=== PATIENT | female | born 1950 | race Caucasian/White ===

== ENCOUNTER 2019-08-26 13:18 | Outpatient (CLI) | payer MEDICARE, OTHER, SELFPAY ==
--- NOTE | 2019-08-26 13:36 | MM_ITS ---
WS: [id number] BILATERAL DIGITAL SCREENING MAMMOGRAPHY WITH CAD CLINICAL INFORMATION: SCREENING HISTORY: Screening mammogram. No current complaints. COMPARISON: TECHNIQUE: Bilateral CC and MLO views. FINDINGS: Scattered fibroglandular densities bilaterally. Lucent centered calcifications. No suspicious focal m ass, asymmetry, calcifications, or architectural distortion. No evidence of malignancy. MM/[place] [id number] IMPRESSION: BI-RADS: 2-Benign FOLLOW UP: 1 Year Follow-up Recommend return to annual screening mammography.
--- NOTE | 2019-08-26 14:27 | XR_ITS ---
WS: [id number] DEXA (DUAL ENERGY X-RAY ABSORPTIOMETRY) Bone mineral density was performed using a [employer] machine. HISTORY: POST MENOPAUSAL COMPARISON: None available. Lumbar spine BMD (L1-L4): 1.208 g/cm2 T score: 0.2 Z score: 0.8 Total hip BMD: Left: 0.951 g/cm2. T score: -0.4 Z score: 0.2 Right: 0.973 g/cm2. T score: -0.3 Z score: 0.4 10 year probability of a major osteoporotic fracture is 9%. XR/XR DEXA axial skeleton* [id number] IMPRESSION: NORMAL BONE MINERAL DENSITY based upon the WHO classification for females.
== END 2019-08-26 13:19 | disposition home or self-care (01) ==
LOC: RADSHAW 13:26
PROVIDERS: Family Provider Family Medicine; PCP Family Medicine; Visit Provider Nurse Practitioner Family
DX: Z12.31 Encounter for screening mammogram for malignant neoplasm of breast (principal); Z78.0 Asymptomatic menopausal state
CPT/HCPCS: 77067; 77080

== ENCOUNTER 2020-07-02 10:13 | Observation (INO) | payer MEDICARE, OTHER, SELFPAY ==
[2020-07-02] VITALS (23 sets, daily range): BP systolic 97–149; BP diastolic 5–113; PULSE 66–90; RESP 16–20; TEMP 36.2–37.9; O2SAT 90–98; BMI 34.7
--- NOTE | 2020-07-02 10:47 | CTR_ITS ---
PROCEDURE INFORMATION: Exam: CT Abdomen And Pelvis With Contrast Exam date and time: 07/02/2020 11:27 AM Age: 69 years old Clinical indication: Abdominal pain; Localized; Right lower quadrant (rlq); Additional info: Abd pain TECHNIQUE: Imaging protocol: Computed tomography of the abdomen and pelvis with intravenous contrast. Radiation optimization: All CT scans at this facility use at least one of these dose optimization techniques: automated exposure control; mA and/or kV adjustment per patient size (includes targeted exams where dose is matched to clinical indication); or iterative reconstruction. Contrast material: OMNI 300; Contrast volume: 95 ml; Contrast route: INTRAVENOUS (IV); COMPARISON: No relevant prior studies available. RADIATION DOSE METRICS: Total DLP (mGy-cm): 1502.52 FINDINGS: Liver: Normal. No mass. Gallbladder and bile ducts: Normal. No calcified stones. No ductal dilation. Pancreas: Normal. No ductal dilation. Spleen: The spleen demonstrates several small calcifications consistent with healed granulomatous disease. Adrenal glands: Normal. No mass. Kidneys and ureters: Left renal 19 mm benign simple cyst. No specific followup required/recommended. Mild right renal cortical scarring. Right mid renal 2.3 mm calyceal calculus. Stomach and bowel: Medial cecal wall thickening which is felt to be secondary. Sigmoid colonic diverticula are present without evidence of diverticulitis. Appendix: The appendix is mildly-moderately enlarged, measuring up to approximately 13.0 mm diameter, tapering distally, with moderately severe periappendiceal edema. An obstructing appendicolith is present measuring 8.4 mm. A periappendiceal fluid collection is not identified. Intraperitoneal space: No pneumoperitoneum or ascites. Vasculature: Calcified phleboliths are present in the lower pelvis bilaterally. Calcified phleboliths are present in the lower pelvis bilaterally. Moderate aortic atherosclerotic calcification without aneurysm. The iliac arteries show moderate bilateral atherosclerotic calcifications without evidence of aneurysm. Lymph nodes: No enlarged lymph nodes. Urinary bladder: The urinary bladder is decompressed and difficult to assess. Reproductive: Benign appearing left adnexal calcification. Bones/joints: L5-S1 degenerative disc disease. Right lower lumbar facet primary osteoarthritis. Grade 1 L4-5 degenerative type anterolisthesis. Moderate L5-S1 spondylosis. Soft tissues: Unremarkable. CT/CT abdomen pelvis w con* [id number] IMPRESSION: 1. Appendicitis. 2. Diverticulosis. 3. Mild right renal cortical scarring. 4. Right renal calyceal lithiasis. COMMENTS: Consistent with the [employer]'s Incidental Findings Committee white paper (J Am Amparo Radiol 2018): Any incidental renal lesion less than 1 cm or classified as too small to characterize, or any incidental cystic renal lesion characterized as simple-appearing, is likely benign. No follow-up imaging is recommended for these lesions per consensus recommendations based on imaging criteria. Radiation Dose CTDIVOL = (mGy): DLP = 1502.52 (mGy-cm)
--- NOTE | 2020-07-02 10:48 | PC.NURSE ---
Pt up to BR to attempt to provide urine sample.
--- NOTE | 2020-07-02 10:48 | W.ED.ABDPA2 ---
HPI - Abdominal Pain General: Chief Complaint: Abdominal Pain Stated Complaint: ABD PAIN Time Seen by Provider: 07/02/20 10:19 History of Present Illness: HPI narrative: 69-year-old female presents emergency room complaining of right lower quadrant abdominal pain that began yesterday. She noticed some urgency yesterday but has not been able to void much at all today she has not had any diarrhea her last normal bowel movement was yesterday. Still a little bit of sinus drainage and cough which she relates to allergies. Is not new it is been ongoing for several weeks now. She does not have any flank pain. Subjectively she had a fever overnight she did notice on the way in the while riding in the car any small bumps they had caused severe right lower quadrant abdominal pain. She has had quite a bit of bilious vomiting in the exam room prior to my arrival. MD elicited complaint: abdominal pain Pertinent past history: past UTI Onset (ago): day(s) Location: RLQ Severity: moderate Quality: cramping and stabbing Radiation: none Migration to: no migration Exacerbating factors: movement and other (Palpation) Relieving factors: rest Associated Symptoms: Reports anorexia, bloating, GI cramping, nausea and vomiting; Denies belching, change in bowel habits, change in stool character, chills, coffee ground emesis, constipation, diarrhea, dyspepsia, dysuria, excessive flatus, fever(s), heartburn, hematochezia, hematuria, hematemesis, fecal incontinence, loose stools, melena, poor appetite and syncope Review of Systems Const: Denies: fever(s) or chills ENMT: Denies: throat pain, ear or mastoid pain, nasal discharge or nasal congestion Card: Denies: syncope Resp: Denies: dyspnea, productive cough or non-productive cough GI: Reports: nausea, vomiting, bloating and GI cramping; Denies: hematemesis, coffee ground emesis, heartburn, diarrhea, constipation, belching, excessive flatus, fecal incontinence, change in bowel habits, change in stool character, hematochezia or melena : Denies: dysuria or hematuria Skin/Breast: Denies: rash or pruritus PFS ED PFSH: Medical History Hypertension Physical Exam Const: COMMON NORMALS: no acute distress GENERAL APPEARANCE: cooperative and comfortable ORIENTATION/CONSCIOUSNESS: Yes awake, Yes oriented to person, Yes oriented to place and Yes oriented to time HENMT: COMMON NORMALS: normocephalic, atraumatic and hearing grossly normal bilaterally HEAD & SCALP: normocephalic and atraumatic Eye: COMMON NORMALS: Equal, round and reactive pupils present, EOMs intact bilaterally, conjunctivae normal and no scleral icterus CONJUNCTIVA: Yes conjunctivae normal PUPIL: Yes Equal, round and reactive pupils present Neck/C-Spine: COMMON NORMALS: full ROM, no lymphadenopathy, supple and no JVD Lymph: LYMPHATIC: no lymphadenopathy noted and no lymphedema noted Resp: COMMON NORMALS: normal respiratory effort, No retractions, No use of accessory muscles and clear to auscultation bilaterally AUSCULTATION: clear to auscultation bilaterally Cardio: COMMON NORMALS: no JVD, regular rate, regular rhythm and No murmurs present (Cardio) RATE: regular rate RHYTHM: regular rhythm GI: COMMON NORMALS: No hepatosplenomegaly present AUSCULTATION: Yes Hypoactive bowel sounds present PALPATION: Yes Tenderness to palpation present (GI) Details: RLQ, Yes Guarding due to palpation present (GI) in the RLQ and Yes No hepatosplenomegaly present Extremity: COMMON NORMALS: normal to inspection, capillary refill normal, no clubbing, cyanosis or edema, no calf tenderness and no pedal edema Neuro: SENSORIUM/ORIENTATION: Yes oriented to person, Yes oriented to place and Yes oriented to time Skin: COMMON NORMALS: no rashes or lesions noted GENERAL SKIN EXAM: no rashes or lesions noted Course Vital Signs: Vital signs: Vital Signs Temperature 97.2 F L 07/02/20 10:21 Pulse Rate 87 07/02/20 11:00 Respiratory Rate 16 07/02/20 11:00 Blood Pressure 97/60 07/02/20 11:00 Pulse Oximetry 95 07/02/20 11:06 MDM - Abdominal Pain MDM Narrative: Medical decision making narrative: CT shows acute appendicitis consistent with finding on history and exam. Discussed Dr. Mendoza he will see the patient in the ER proceed directly the operating room discussed with patient and informed her of the diagnosis. Lab Data: Labs: Lab Results 07/02/20 07/02/20 Range/Units 10:35 10:35 WBC 15.6 H (4.0-10.0) 10^3/ uL RBC 4.73 (4.1-5.3) 10^6/u L Hgb 13.4 (11.5-15.3) g/dL Hct 41.2 (37.0-47.0) % MCV 87.1 (81-99) fL MCH 28.3 (28.0-34.0) pg MCHC 32.5 (30.0-36.0) g/dL RDW 14.3 (12.1-15.1) % Plt Count 308 (130-400) 10^3/c mm MPV 9.7 (7.4-10.4) fL Neut % (Auto) 83.5 % Lymph % (Auto) 10.7 % Daniels % (Auto) 5.1 % Eos % (Auto) 0.0 % Baso % (Auto) 0.3 % Neut # (Auto) 13.06 H (1.8-7.7) 10^3/u L Lymph # (Auto) 1.7 (0.8-4.8) 10^3/u L Daniels # (Auto) 0.8 (0.2-0.9) 10^3/u L Eos # (Auto) 0.0 (0.0-0.8) 10^3/u L Baso # (Auto) 0.0 (0.0-0.1) 10^3/u L Nucleated RBC % (a uto) 0 % Nucleated RBCs # 0.0 /100WBC Sodium 134 L (136-145) mmol/L Potassium 3.7 (3.5-5.1) mmol/L Chloride 91 L (98-107) mmol/L Carbon Dioxide 30 H (22-29) mmol/L Anion Gap 16.7 (5-19) BUN 10 (8-23) mg/dL Creatinine 0.6 (0.5-0.9) mg/dL GFR Calculation 98.8 (90-130) mL/min Glucose 187 H (65-115) mg/dL Calculated Osmolal ity 282 L (285-295) mOsm/k g Calcium 9.3 (8.5-10.5) mg/dL Total Bilirubin 0.7 (0.15-1.2) mg/dL AST 16 (0-32) U/L ALT 13 (0-33) U/L Alkaline Phosphata se 53 (35-105) IU/L Total Protein 8.0 (6.6-8.7) g/dL Albumin 4.1 (3.5-5.2) g/dL Globulin 3.9 (1.3-4.6) g/dL Lipase 30 (13-60) U/L Discharge Plan Discharge Patient Disposition: Admitted As Inpatient Clinical Impression: Acute appendicitis Condition: Stable Coding Level of Care Code 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
[2020-07-02 10:51] LABS: Basophils % 0.3 %; Hematocrit 41.2 % (37.0-47.0); Hemoglobin 13.4 g/dL (11.5-15.3); Lymphocytes # 1.7 10^3/uL (0.8-4.8); Lymphocytes % 10.7 %; Mean Corpuscular HGB Conc 32.5 g/dL (30.0-36.0); Mean Corpuscular Hemoglobin 28.3 pg (28.0-34.0); Mean Corpuscular Volume 87.1 fL (81-99); Mean Platelet Volume 9.7 fL (7.4-10.4); Monocytes # 0.8 10^3/uL (0.2-0.9); Monocytes % 5.1 %; Neutrophils # 13.06 10^3/uL (1.8-7.7); Neutrophils % 83.5 %; Nucleated Red Blood Cells % 0 %; Platelet Count 308 10^3/cmm (130-400); Red Blood Count 4.73 10^6/uL (4.1-5.3); Red Cell Distribution Width 14.3 % (12.1-15.1); White Blood Count 15.6 10^3/uL (4.0-10.0)
--- NOTE | 2020-07-02 10:53 | PC.NURSE ---
Pt attempted to get UA, was able to void but missed the hat. Physician notified.
[2020-07-02] MEDS: morphine 4 mg/mL SDV 1 mL IVP (10:56)
[2020-07-02] MEDS: ondansetron 2 mg/ML SDV 2 mL 4 MG IVP (10:57)
--- NOTE | 2020-07-02 11:06 | PC.NURSE ---
Pt saturations dropped to 84% on room air after medication administration. Pt placed on 2LNC, now 96%.
[2020-07-02 11:09] LABS: Alanine Aminotransferase 13 U/L (0-33); Albumin Level 4.1 g/dL (3.5-5.2); Alkaline Phosphatase 53 IU/L (35-105); Anion Gap 16.7 (5-19); Aspartate Amino Transferase 16 U/L (0-32); Blood Urea Nitrogen 10 mg/dL (8-23); Calcium 9.3 mg/dL (8.5-10.5); Carbon Dioxide 30 mmol/L (22-29); Chloride 91 mmol/L (98-107); Globulin 3.9 g/dL (1.3-4.6); Glomerular Filtration Rate 98.8 mL/min (90-130); Glucose 187 mg/dL (65-115); Lipase 30 U/L (13-60); Osmolality Calculated 282 mOsm/kg (285-295); Potassium 3.7 mmol/L (3.5-5.1); Sodium 134 mmol/L (136-145); Total Bilirubin 0.7 mg/dL (0.15-1.2)
--- NOTE | 2020-07-02 11:20 | PC.NURSE ---
Pt to CT
--- NOTE | 2020-07-02 11:53 | P.HP_ITS ---
Providers/Chief Complaint Primary Care Provider: Kamlesh Baker Jr, MD Chief Complaint: ABD PAIN History of Present Illness Chief Complaint: Abdominal pain History of present illness: Ms. Michelle Estrada is a pleasant 69 year old female presents to the emergency department with worsening right lower side abdominal pain that started yesterday associated with nausea vomiting fevers or chills. Patient initially thought that she had UTI as she does get them quite often. She denies history of COVID-19 positive or has been in contact with any sick patients. Comes to the emergency department because of her worsening symptoms escorted by her spouse and further work-up showed leukocytosis of 15,000+ and a CT scan that showed acute appendicitis. CT scan of the abdomen and pelvis was done and showed: FINDINGS: Liver: Normal. No mass. Gallbladder and bile ducts: Normal. No calcified stones. No ductal dilation. Pancreas: Normal. No ductal dilation. Spleen: The spleen demonstrates several small calcifications consistent with healed granulomatous disease. Adrenal glands: Normal. No mass. Kidneys and ureters: Left renal 19 mm benign simple cyst. No specific followup required/recommended. Mild right renal cortical scarring. Right mid renal 2.3 mm calyceal calculus. Stomach and bowel: Medial cecal wall thickening which is felt to be secondary. Sigmoid colonic diverticula are present without evidence of diverticulitis. Appendix: The appendix is mildly-moderately enlarged, measuring up to approximately 13.0 mm diameter, tapering distally, with moderately severe periappendiceal edema. An obstructing appendicolith is present measuring 8.4 mm. A periappendiceal fluid collection is not identified. Intraperitoneal space: No pneumoperitoneum or ascites. Vasculature: Calcified phleboliths are present in the lower pelvis bilaterally. Calcified phleboliths are present in the lower pelvis bilaterally. Moderate aortic atherosclerotic calcification without aneurysm. The iliac arteries show moderate bilateral atherosclerotic calcifications without evidence of aneurysm. Lymph nodes: No enlarged lymph nodes. Urinary bladder: The urinary bladder is decompressed and difficult to assess. Reproductive: Benign appearing left adnexal calcification. Bones/joints: L5-S1 degenerative disc disease. Right lower lumbar facet primary osteoarthritis. Grade 1 L4-5 degenerative type anterolisthesis. Moderate L5-S1 spondylosis. Soft tissues: Unremarkable. CT/CT abdomen pelvis w con* [id number] IMPRESSION: 1. Appendicitis. 2. Diverticulosis. 3. Mild right renal cortical scarring. 4. Right renal calyceal lithiasis. General surgery was consulted for further evaluation management, patient was seen and evaluated in room #13 in the emergency department. Review of Systems General: Reports: 10 or more systems reviewed and unremarkable except in HPI and below Medications/Allergies Home Medications Medication Instructions Recorded Confirmed Last Taken Type chlorthalidone 25 mg PO DAILY 07/02/20 07/02/20 07/01/20 History fluticasone propionate 1 spray INTRANASAL BID PRN 07/02/20 07/02/20 07/01/20 History loratadine 10 mg PO DAILY 07/02/20 07/02/20 07/01/20 History Allergies Allergy/AdvReac Type Severity Reaction Status Date / Time No Known Allergies Allergy Unverified 07/02/20 11:55 PFSH Acute PFSH: Medical History Hypertension Vitals/I&O/Wt Last Vital Signs Temp 97.2 F L 07/02/20 10:21 Pulse 87 07/02/20 11:00 Resp 16 07/02/20 11:00 BP 97/60 07/02/20 11:00 Pulse Ox 95 07/02/20 11:06 Weight last 48 hrs Weight 215 lb Physical Exam Narrative: EXAM NARRATIVE: Patient is conscious alert oriented X3 BMI 35 Head and neck examination PERRLA no masses no cervical lymphadenopathy no jaundice Cardiac examination audible S1-S2 no murmurs no gallops no arrhythmias Chest is clear bilateral,abscence of Rhonchi or wheezes,no surgical emphysema Abdomen right lower quadrant tenderess, maximal at McBurney's point with localized guarding and rigidity. Otherwise nondistended soft no organomegaly Obese Extremities no cyanosis no clubbing no edema Data : 07/02/20 10:35 07/02/20 10:35 A&P Assessment and plan (1) Acute appendicitis: After thorough history physical examination and reviewing the chart and images with my personal interpretion, I counseled the patient for laparoscopic appendectomy possible open. Indications, risks, benefits and alternatives were all discussed with the patient and did agree to proceed. Rationale was carefully and clearly discussed with the patient.Appropriate informed consent have been reviewed and signed Status: Acute Attestations Medical Necessity Statement*: Observation overnight for pain control Time Spent in Patient Care: (>than 50% of time spent in counselling and/or direct pt care on unit) . 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
--- NOTE | 2020-07-02 12:41 | ANES.PREANE2 ---
Pre-Anesthetic Assessment Pre-Anesthetic Assessment: Height/Weight: Height 1.68 m Weight 97.522 kg Temp Pulse Resp BP Pulse Ox 97.2 F L 87 16 97/60 95 07/02/20 10:21 07/02/20 11:00 07/02/20 11:00 07/02/20 11:00 07/02/20 11:06 Preop Diagnosis: Acute appendicitis Proposed Procedure: Operation Date: 07/02/20 11:55 Proposed Procedures p Laparoscopic Appendectomy(Not Applicable) - Marcos Mendoza MD Familial anesthetic complications: None Last intake: NPO > 8 hrs Social: Social History: No alcohol and No tobacco Exam: Pre-Anes Outpt Exam: alert, oriented x 3, clear to auscultation bilaterally and regular rate & rhythm Airway: Cervical ROM: WNL MP: 4 Dentition: Partials CV/HEM: CV/HEM: HTN Anesthetic Plan: ASA status: 2E Anesthesia: General Risk of > 500 ml blood loss (7ml/kg in children): No PFSH Anesthesia PFSH: Medical History Hypertension Data Anesthesia CBC & Chem 7: 07/02/20 10:35 07/02/20 10:35 Other Labs: Laboratory Results - last 48 hr 07/02/20 07/02/20 10:35 10:35 WBC 15.6 H RBC 4.73 Hgb 13.4 Hct 41.2 MCV 87.1 MCH 28.3 MCHC 32.5 RDW 14.3 Plt Count 308 MPV 9.7 Neut % (Auto) 83.5 Lymph % (Auto) 10.7 [place] % (Auto) 5.1 Eos % (Auto) 0.0 Baso % (Auto) 0.3 Neut # (Auto) 13.06 H Lymph # (Auto) 1.7 [place] # (Auto) 0.8 Eos # (Auto) 0.0 Baso # (Auto) 0.0 Nucleated RBC % (auto) 0 Nucleated RBCs # 0.0 Sodium 134 L Potassium 3.7 Chloride 91 L Carbon Dioxide 30 H Anion Gap 16.7 BUN 10 Creatinine 0.6 GFR Calculation 98.8 Glucose 187 H Calculated Osmolality 282 L Calcium 9.3 Total Bilirubin 0.7 AST 16 ALT 13 Alkaline Phosphatase 53 Total Protein 8.0 Albumin 4.1 Globulin 3.9 Lipase 30 Cardiac Studies: No Data to Display
[2020-07-02] MEDS: piperacillin-tazobactam 3.375 GM in sodium chloride 0.9% (plus) 50 ML IV ×2 (12:52→18:16)
[2020-07-02] MEDS: lidocaine 1% INJ 20 mL INJECTION (13:06)
--- NOTE | 2020-07-02 14:19 | P.OP_ITS ---
Operative Report Date of procedure: July 02, 2020 Pre-op Diagnosis: Acute appendicitis Post-op Diagnosis: Acute appendicitis with perforation towards the base of the appendix with fecolith Pelvic peritonitis Intra-abdominal omental adhesions encasing the site of perforation Terminal ileitis Procedure Done: Laparoscopic appendectomy and partial cecectomy and intra- abdominal drain placement Implants: 15 [place] round Sha drain Specimens removed/disposition: partial cecectomy and appendectomy Surgeon: Marcos Mendoza Food Preparer: Surgical dago Villareal Circulating nurse Andry Anesthesia: General (Saw Goss and Dr. King) Estimated blood loss (mL): 25 IV fluids (mL): 1,000 Condition: stable Disposition: observation Brief History: Full H&P per chart. After thorough history physical examination and reviewing the chart and images with my personal interpretion, I counseled the patient for laparoscopic appendectomy possible open. Indications, risks, benefits and alternatives were all discussed with the patient and did agree to proceed. Rationale was carefully and clearly discussed with the patient.Appropriate informed consent have been reviewed and signed Procedure: Patient after being identified in the holding area and asked to void urine, and informed consent per chart ,patient was then taken back to the OR placed in supine position got intubated by anesthesia left arm was tucked tucked ,Timeout was done verifying the patient's name/date of /planned procedure and destination after the procedure, all were in agreement., preoperative antibiotics administered per protocol. prep and drape of the abdomen was done under the usual sterile technique. Started by longitudinal skin incision supraumbilical using a Hinkle trocar technique safe entry to the abdominal cavity was achieved verified by using 10 mm zero degree laparoscopy, switched to a 30? scope under direct visualization a suprapubic 5 mm trocar was inserted followed by another 5 mm trocar inserted in the left lower quadrant, I was able to position the patient in an T Brantley and left side down, patient was noticed to have pelvic peritonitis and pus at the pelvis and right paracolic gutter. Right-sided omental adhesions encasing the inflammatory process, that I had to take down with LigaSure first before reaching to the appendix region. Patient was noticed to have terminal ileitis and encasing the prececal inflamed appendix.dissection of the prececal acutely inflamed appendix there was some adhesions towards the lateral pelvic wall that was taken down by sharp and blunt dissection Using LigaSure also I took down also the mesoappendix.And there was an evidence of perforation towards the base of the appendix with fecalith one is large about centimeter in size and another one smaller less than half centimeter in size. Further dissection was warranted to reach the healthier part of the cecum in the form of mobilization of the proximal part of the ascending colon. I had to switch the camera to 5 mm 30? scope got introduced through the left lower quadrant and through the Hinkle trocar under direct visualization a GI stapler 45 mm blue load x3 was applied at the healthy part of the cecum and at this point a laparoscopic partial cecectomy and appendectomy was achieved. Copious and thorough irrigation with warm saline using about 6 L, and suction was obtained, were mercury/pus fluid like in the pelvis due to reaction from the inflamed appendix. Multiple 5 mm clips were applied onto the mesoappendix as well as the appendectomy staple line and a right lateral pelvic wall for minimal oozing. Final look laparoscopy was done showing no other abnormalities or injuries. The fascial closure device was used to close the supraumbilical fascial defect using #1 PDS under direct visualization. Following that I elected to place a 15 [place] round Sha drain through the lower midline 5 mm trocar site and placed it under direct visualization towards the right paracolic gutter and pelvic region, and the drain was secured to the skin using 2-0 nylon. All trocars were taken out under direct visualization, thorough irrigation was done to all incision sites and skin preeti were used for skin closure.Infiltr ation of local lidocaine 2% was done to all incision sites.Dry dressing was applied. Count was completed at the end of the procedure for [place],sponges and instruments Patient tolerated the procedure well and was transferred to the recovery area after extubation. I was present for the whole entire procedure
--- NOTE | 2020-07-02 15:15 | PM.PACU ---
PACU note Post-Anesthesia Exam: awake and vital signs stable Disposition: back to floor
--- NOTE | 2020-07-02 15:16 | SUR.PHASEI ---
PT AWAKE ALERT ON 3LNC PT ERICH DRAIN EMPTIED OF 200ML CLEAR LT YELLOW SECRETION, ABD SOFT 3 SITES WITH EXOFIN AND BANDAIDS D/I PT TO FLOOR PER CART.
--- NOTE | 2020-07-02 15:40 | SUR.PHASEI ---
PT TO FLOOR,PT ALERT MOVES SELF TO BED DRAIN AGAIN FULL DRESSING NOW SAT
[2020-07-02] MEDS: famotidine 20 mg/2 mL INJ IVP (15:55)
[2020-07-02] MEDS: sodium chloride 0.9% 1,000 ML 100 ML IV (15:56)
--- NOTE | 2020-07-02 16:59 | PC.NURSE ---
Phone, Chargers, Tablet, Partial denture, clothes.
[2020-07-02 18:52] LABS: Add Urine Microscopic? YES; Bilirubin Urine Neg (Negative); Blood Urine 2+ (Negative); Glucose Urine UA Norm (Normal); Ketones Urine Negative (Negative); Leukocyte Esterase Urine Negative (Negative); Nitrate Urine Negative (Negative); Protein Urine Trace (Negative); Specific Gravity, Urine 1.005 (1.005-1.030); Urine Appearance SL Hazy (CLEAR); Urine Color Yellow (Yellow); Urobilinogen Urine Norm (Negative); pH Urine 6.5 (5-7)
[2020-07-02 19:04] LABS: RBC Urine 0-4 /hpf (0-2); Squamous Epithelial Cell Urine 25-40 /hpf (0-5); WBC Urine 0-4 /hpf (0-5)
[2020-07-02 19:05] LABS: Add Urine Culture? No; Bacteria Urine TRACE /hpf
[2020-07-02] MEDS: HYDROcodone-acetaminophen 5-325 mg Tablet 1 TAB PO (21:38)
[2020-07-03] VITALS (8 sets, daily range): BP systolic 101–131; BP diastolic 59–80; PULSE 58–75; RESP 16–20; TEMP 36.6–37.1; O2SAT 92–96
[2020-07-03] MEDS: sodium chloride 0.9% 1,000 ML 100 ML IV ×3 (02:50→22:35)
[2020-07-03] MEDS: famotidine 20 mg/2 mL INJ IVP ×2 (02:50→14:45)
[2020-07-03] MEDS: piperacillin-tazobactam 3.375 GM in sodium chloride 0.9% (plus) 50 ML IV ×3 (03:13→20:19)
[2020-07-03 05:12] LABS: Basophils # 0.1 10^3/uL (0.0-0.1); Basophils % 0.3 %; Eosinophils # 0.2 10^3/uL (0.0-0.8); Eosinophils % 1.3 %; Hematocrit 33.3 % (37.0-47.0); Hemoglobin 10.8 g/dL (11.5-15.3); Lymphocytes # 1.4 10^3/uL (0.8-4.8); Lymphocytes % 7.5 %; Mean Corpuscular HGB Conc 32.4 g/dL (30.0-36.0); Mean Corpuscular Hemoglobin 28.6 pg (28.0-34.0); Mean Corpuscular Volume 88.3 fL (81-99); Monocytes # 0.7 10^3/uL (0.2-0.9); Monocytes % 3.8 %; Neutrophils # 16.29 10^3/uL (1.8-7.7); Neutrophils % 86.5 %; Nucleated Red Blood Cells % 0 %; Platelet Count 214 10^3/cmm (130-400); Red Blood Count 3.77 10^6/uL (4.1-5.3); Red Cell Distribution Width 14.5 % (12.1-15.1); White Blood Count 18.8 10^3/uL (4.0-10.0)
[2020-07-03 05:30] LABS: Anion Gap 9.1 (5-19); Blood Urea Nitrogen 10 mg/dL (8-23); Calcium 8.1 mg/dL (8.5-10.5); Carbon Dioxide 29 mmol/L (22-29); Chloride 97 mmol/L (98-107); Glucose 165 mg/dL (65-115); Osmolality Calculated 277 mOsm/kg (285-295); Potassium 3.1 mmol/L (3.5-5.1); Sodium 132 mmol/L (136-145)
[2020-07-03] MEDS: heparin 5,000 unit/mL INJ 1 mL 5000 UNIT SUBCUT ×3 (06:45→22:35)
--- NOTE | 2020-07-03 07:05 | P.PN_ITS ---
Subjective Subjective: Interval history: Patient overall feels better, no acute events overnight and good urine output. Did not pass gas yet. TrEnding up leukocytosis and hypokalemia. Vitals/I&O/Wt Last Vital Signs Temp 98.3 F 07/03/20 05:07 Pulse 58 L 07/03/20 05:07 Resp 18 07/03/20 05:07 BP 106/69 07/03/20 05:07 Pulse Ox 95 07/03/20 05:07 07/02/20 07/03/20 07/03/20 22:59 06:59 14:59 Intake Total 290 / 440 1720 / 2160 Output Total 300 / 320 1000 / 1320 Balance -10 / 120 720 / 840 Weight last 48 hrs Weight 215 lb Physical Exam Narrative: EXAM NARRATIVE: Patient is conscious alert oriented X3 BMI 35 Head and neck examination PERRLA no masses no cervical lymphadenopathy no jaundice Cardiac examination audible S1-S2 no murmurs no gallops no arrhythmias Chest is clear bilateral,abscence of Rhonchi or wheezes,no surgical emphysema Abdomen nontender nondistended soft no organomegaly guarding or rigidity/no signs of peritonitis Lower abdominal drain in place with serosanguineous output Extremities no cyanosis no clubbing no edema Data : 07/03/20 04:51 07/03/20 04:51 A&P Assessment and plan (1) Acute appendicitis: Replace potassium by p.o. 40 mEq and repeat labs in the morning in the form of CBC and BMP encourage ambulation Incentive spirometer every hour We will advance slowly to full liquid Drain care and teaching Assurance and education All questions have been answered and all concerns have been addressed to patient's satisfaction. Status: Resolved Attestations Medical Necessity Statement*: Observation status and plan to keep the patient 1 more night for IV antibiotic and trending down and leukocytosis Time Spent in Patient Care: (>than 50% of time spent in counselling and/or direct pt care on unit) . Coding Level of Care Code Acute Dishwasher Busser for Minerva Robledo Diagnoses Acute appendicitis K35.80
[2020-07-03] MEDS: potassium chloride oral liq 20 mEq/15 mL UDC 40 MEQ PO (08:14)
--- NOTE | 2020-07-03 12:47 | ANE.PACU2 ---
Inpatient post-anesthesia follow up: Airway intact: Yes Vital signs: Temperature 98.5 F Pulse Rate [Monito r] 90 Pulse Rate 66 Respiratory Rate 18 Blood Pressure [Ri ght Arm] 142/81 Blood Pressure 101/63 Pulse Oximetry 93 Oxygen Delivery Me thod [ Nasal Cannula Current Rate & Del willy] Oxygen Delivery Me thod Room Air Oxygen Flow Rate [ Current Rate 2.5 & Delivery] Oxygen Flow Rate 1 Fraction of Inspir ed Oxygen Hydration adequate: Yes Nausea and vomiting: No Pain level: 2 Mental status: Baseline
[2020-07-04] VITALS: BP 132/64; PULSE 80; RESP 19; TEMP 36.7; O2SAT 94
[2020-07-04] MEDS: famotidine 20 mg/2 mL INJ IVP (02:59)
[2020-07-04 04:00] VITALS: BP 128/77; PULSE 86; RESP 17; TEMP 37.7; O2SAT 93
[2020-07-04] MEDS: piperacillin-tazobactam 3.375 GM in sodium chloride 0.9% (plus) 50 ML IV (04:11)
[2020-07-04 04:56] LABS: Basophils % 0.2 %; Eosinophils % 0.1 %; Hematocrit 33.1 % (37.0-47.0); Hemoglobin 10.5 g/dL (11.5-15.3); Lymphocytes # 1.9 10^3/uL (0.8-4.8); Lymphocytes % 13.8 %; Mean Corpuscular HGB Conc 31.7 g/dL (30.0-36.0); Mean Corpuscular Hemoglobin 28.6 pg (28.0-34.0); Mean Corpuscular Volume 90.2 fL (81-99); Mean Platelet Volume 10.4 fL (7.4-10.4); Monocytes # 0.6 10^3/uL (0.2-0.9); Monocytes % 4.5 %; Neutrophils # 10.87 10^3/uL (1.8-7.7); Nucleated Red Blood Cells % 0 %; Platelet Count 243 10^3/cmm (130-400); Red Blood Count 3.67 10^6/uL (4.1-5.3); Red Cell Distribution Width 14.6 % (12.1-15.1); White Blood Count 13.4 10^3/uL (4.0-10.0)
[2020-07-04 05:17] LABS: Anion Gap 8.3 (5-19); Blood Urea Nitrogen 8 mg/dL (8-23); Calcium 7.9 mg/dL (8.5-10.5); Carbon Dioxide 30 mmol/L (22-29); Chloride 99 mmol/L (98-107); Glucose 109 mg/dL (65-115); Osmolality Calculated 277 mOsm/kg (285-295); Potassium 3.3 mmol/L (3.5-5.1); Sodium 134 mmol/L (136-145)
[2020-07-04] MEDS: heparin 5,000 unit/mL INJ 1 mL 5000 UNIT SUBCUT (06:58)
[2020-07-04] MEDS: potassium chloride ER 20 mEq Tablet 40 MEQ PO (06:58)
[2020-07-04] MEDS: glycerin adult supp 2 EACH PR (06:58)
--- NOTE | 2020-07-04 07:43 | P.SS_ITS ---
Short Stay Summary Providers Date of Admit/Discharge: 07/04/20 Attending Provider: Marcos Mendoza MD Primary Care Provider: Kamlesh Baker Jr, MD Chief Complaint: ABD PAIN HPI History of Present Illness Michelle Estrada is a 69 year old female presented with worsening abdominal pain to the emergency department and was found to have acute appendicitis. General surgery was consulted for further surgical care and management. Review of Systems General: Reports: 10 or more systems reviewed and unremarkable except in HPI and below Home Meds/Allergies Home Medications and Allergies Home Medications Medication Instructions Recorded Confirmed Type chlorthalidone 25 mg PO DAILY 07/02/20 07/02/20 History fluticasone propionate 1 spray INTRANASAL BID PRN 07/02/20 07/02/20 History loratadine 10 mg PO DAILY 07/02/20 07/02/20 History Allergies Allergy/AdvReac Type Severity Reaction Status Date / Time No Known Allergies Allergy Unverified 07/04/20 07:45 PFSH Acute PFSH: Medical History Acute appendicitis Hypertension Vitals/I&O/Wt Last Vital Signs Temp 99.8 F H 07/04/20 04:00 Pulse 86 07/04/20 04:00 Resp 17 07/04/20 04:00 BP 128/77 07/04/20 04:00 Pulse Ox 93 07/04/20 04:00 07/03/20 07/04/20 07/04/20 22:59 06:59 14:59 Intake Total 1050 / 2341.667 290 / 2631.667 Output Total 640 / 1490 2100 / 3590 Balance 410 / 851.667 -1810 / -958.333 Weight last 48 hrs Weight 215 lb Physical Exam Narrative: EXAM NARRATIVE: Patient is conscious alert oriented X3 BMI 35 Head and neck examination PERRLA no masses no cervical lymphadenopathy no jaundice Cardiac examination audible S1-S2 no murmurs no gallops no arrhythmias Chest is clear bilateral,abscence of Rhonchi or wheezes,no surgical emphysema Abdomen nontender except mildly at the incision sites nondistended soft no organomegaly guarding or rigidity/no signs of peritonitis, incisions are clean dry and intact and skin preeti in place after taking the Band-Aids down. Lower abdominal drain in place with serosanguineous output total of 50 mL over the past shift Hospital Course Discharge Summary This is a 69 years old female patient presented to the ER with worsening abdominal pain was found to have acute appendicitis on the CT scan. After thorough history physical examination and reviewing the chart and images with my personal interpretation patient was taken to the OR for laparoscopic appendectomy. Overall postoperatively patient did well and had uneventful hospital stay.Except for hypokalemia that was corrected by p.o. potassium chloride. Otherwise patient continued to have stable vital signs and good urine output and has been passing gas. Plan to discharge home today and follow-up at surgery office in 10 days with emphasis on drain teaching and education per nursing staff. Patient was educated to avoid constipation by using Metamucil or Benefiber [id number] and I will to supply the patient with p.o. potassium 20 mEq daily for 5 days and encouraged to follow-up with Dr. Gomez her family doctor. SSS Data Data Completed and Pending: Completed Studies During Hospitalization Category Date Time Status CT abdomen pelvis w con* [id number] Stat Cat Scan 07/02/20 10:47 Completed Pending at discharge Category Date Time Status ES surgery / GI i mages Routine Exams 07/02/20 12:10 Taken Basic Metabolic P sumaya AM LABS Lab 07/05/20 04:00 Ordered Complete Blood Co unt w/Auto AM LABS Lab 07/05/20 04:00 Ordered Pathology: Surgic al [PTH] Routine Pth 07/02/20 14:54 Ordered Diagnoses at Discharge Discharge Diagnosis (1) Acute appendicitis: Status: Resolved Permanent problem details: We will plan to give the patient p.o. 40 mEq of KCl x1 Hep-Lock IV fluids Advance diet as tolerated Plan to DC home today Assurance and education All questions have been answered and all concerns have been addressed to patient's satisfaction. (2) Hypokalemia: Status: Acute Discharge Plan Discharge Patient Disposition: Home Condition: Stable Prescriptions: [place] 5-325 mg tablet 1 tab PO Q6H PRN (Reason: pain) Qty: 28 RF: 0 potassium chloride 20 mEq packet 20 meq PO DAILY 5 Days Qty: 5 RF: 0 Continued chlorthalidone 25 mg tablet 25 mg PO DAILY RF: 0 fluticasone propionate 50 mcg/actuation spray,suspension 1 spray INTRANASAL BID PRN (Reason: Nasal Congestion) RF: 0 loratadine 10 mg Tablet 10 mg PO DAILY RF: 0 Discharge Orders: Discharge Order (Routine); Ordered 07/04/20 Ordered By: Marcos Mendoza Referrals: Marcos Mendoza MD [Physician] - (Return to surgery office in 10 days) Discharge Diet: Advance as tolerated Discharge Activity: Limit activity as instructed Activity Restrictions/Additional Instructions: 1. Patient can shower after 48 hours from surgery 2. Drain care and teach 3. Up and walking as tolerated 4. Do lift more than 5 pounds first 2 weeks after surgery and not more than 25 pounds 6 to 8 weeks after surgery. 5. Do not operate heavy machinery or drive while using pain medications. 6.Contact the office or return to the ER for worsening nausea vomiting fevers or chills, or noticing any redness around incision sites or discharge. Attestations Medical Necessity Statement*: Observation for medical and surgical care Time Spent in Patient Care*: greater than 30 min Specific Discharge Activities: Specific discharge activities: educating patient Status at Discharge: Cognitive status at discharge: cognitively intact , Behavioral status at discharge: cooperative , Functional status at discharge: independent ambulation Overall status at discharge: patient is progressing back to baseline Quality Metrics Clinical Quality Measures: During this hospital stay, did patient experience: None Coding Level of Care Code Acute Gemologist for Minerva Robledo Diagnoses Acute appendicitis K35.80 Hypokalemia E87.6
[2020-07-04 09:58] VITALS: BP 128/77; PULSE 86; RESP 17; TEMP 37.7; O2SAT 93
== END 2020-07-04 09:58 | disposition home or self-care (01) ==
LOC: ER 10:20 → OPS 12:07 → MEDSURG 13:27
PROVIDERS: Admitting Provider Surgery; Emergency Provider Family Medicine; PCP Family Medicine; Visit Provider Surgery
PROC: 0DTJ4ZZ Resection of Appendix, Percutaneous Endoscopic Approach (ICD-10-PCS; CPT 44970; principal; 2020-07-02 11:55)
DX: K35.80 Unspecified acute appendicitis (principal); E87.6 Hypokalemia; I10 Essential (primary) hypertension
CPT/HCPCS: 44970; 12345; 36415; 74177; 80048; 80053; 81001; 83690; 85025; 88304; 96361; 96365; 96366; 96372; 96375; 99282; 99285; G0378; J0131; J1100; J1644; J2270; J2405; J2543; J2704; J2710; J3010; J3490; J7030

== ENCOUNTER → 2020-10-02 13:43 | Outpatient (BNVA) | payer MEDICARE, OTHER, SELFPAY | PROVIDERS: PCP Family Medicine; Visit Provider Obstetrics & Gynecology | DX: R32 Unspecified urinary incontinence (principal); N32.81 Overactive bladder | CPT/HCPCS: 81000 ==

== ENCOUNTER → 2020-10-12 09:44 | Outpatient (BNVA) | payer MEDICARE, OTHER, SELFPAY | PROVIDERS: PCP Family Medicine; Visit Provider Internal Medicine | DX: Z12.11 Encounter for screening for malignant neoplasm of colon (principal) | CPT/HCPCS: 87635 ==

== ENCOUNTER 2020-10-16 07:38 | Day surgery (SDC) | payer MEDICARE, OTHER, SELFPAY ==
[2020-10-16 07:52] VITALS: BP 144/81; PULSE 78; RESP 18; TEMP 36.6; O2SAT 97
--- NOTE | 2020-10-16 08:03 | ANES.PREANE2 ---
Pre-Anesthetic Assessment Pre-Anesthetic Assessment: Height/Weight: Height 1.68 m Weight 99.79 kg Temp Pulse Resp BP Pulse Ox 97.8 F 78 18 144/81 97 10/16/20 07:52 10/16/20 07:52 10/16/20 07:52 10/16/20 07:52 10/16/20 07:52 Preop Diagnosis: s Proposed Procedure: Operation Date: 10/16/20 09:00 Proposed Procedures p Colonoscopy 23566 z12.11(Not Applicable) - Yonatan Onofre MD Was Beta Sea taken within 24 hours: N/A Last intake: Intake Last Liquid Date 10/15/20 Last Liquid Time 23:00 Last Solid Date 10/14/20 Last Solid Time 18:00 Social: Social History: No alcohol and No tobacco Exam: Pre-Anes Outpt Exam: alert, oriented x 3, clear to auscultation bilaterally and regular rate & rhythm Airway: Submandibular: WNL Cervical ROM: WNL MP: 2 Dentition: Full CV/HEM: CV/HEM: HTN Metabolic: Metabolic: Morbid obesity Anesthetic Plan: ASA status: 3 Anesthesia: MAC Risk of > 500 ml blood loss (7ml/kg in children): No PFSH Anesthesia PFSH: Medical History (Updated 10/02/20 @ 15:38 by Oh Montoya MD) Acute appendicitis We will plan to give the patient p.o. 40 mEq of KCl x1 Hep-Lock IV fluids Advance diet as tolerated Plan to DC home today Assurance and education All questions have been answered and all concerns have been addressed to patient's satisfaction. Hypertension Family History (Updated 10/02/20 @ 13:34 by Rae Treadwell RN) Mother Diabetes Sister Diabetes Hypertension Brother Diabetes x2 Hypertension x2 Heart disease Grandmother Stroke paternal Family/Other Breast cancer, Onset Age: 60 paternal first cousin Denies family history of Colon cancer Ovarian cancer Clotting disorder Hyperlipidemia Anesthesia complication Bleeding disorder Uterine cancer Thyroid condition Social History (Updated 10/02/20 @ 13:34 by Rae Treadwell RN) Smoking and tobacco status: never smoked Alcohol intake: current Alcohol intake frequency: holidays/special occasions only Data Anesthesia Cardiac Studies: No Data to Display
[2020-10-16] MEDS: sodium chloride 0.9% 1,000 ML 30 ML IV (08:11)
--- NOTE | 2020-10-16 09:15 | W.PM.OPSUD ---
Surgery/Procedure H&P Update DATE OF PROCEDURE: October 16, 2020 DATE H&P PERFORMED: 10/01/20 PREOP DIAGNOSIS: s PLANNED PROCEDURE: Operation Date: 10/16/20 09:00 Proposed Procedures p Colonoscopy 87721 z12.11(Not Applicable) - Yonatan Onofre MD
[2020-10-16 09:44] VITALS: BP 169/103; PULSE 65; RESP 18; TEMP 36.6; O2SAT 96
[2020-10-16 09:49] VITALS: BP 163/90; PULSE 58; RESP 18; TEMP 36.5; O2SAT 95
--- NOTE | 2020-10-16 10:20 | ANE.PACU2 ---
Inpatient post-anesthesia follow up: Airway intact: Yes Vital signs: Temperature 97.7 F Pulse Rate 58 Respiratory Rate 18 Blood Pressure 163/90 Pulse Oximetry 95 Oxygen Delivery Me thod Room Air Oxygen Flow Rate Fraction of Inspir ed Oxygen Hydration adequate: Yes Nausea and vomiting: No Mental status: Baseline
--- NOTE | 2020-10-16 13:10 | ANE.PACU2 ---
Inpatient post-anesthesia follow up: Airway intact: Yes Vital signs: Temperature 97.7 F Pulse Rate 58 Respiratory Rate 18 Blood Pressure 163/90 Pulse Oximetry 95 Oxygen Delivery Me thod Room Air Oxygen Flow Rate Fraction of Inspir ed Oxygen Hydration adequate: Yes Nausea and vomiting: No Pain level: 1 Mental status: Baseline
== END 2020-10-16 10:07 | disposition home or self-care (01) ==
PROVIDERS: PCP Family Medicine; Visit Provider Internal Medicine
PROC: 0DJD8ZZ Inspection of Lower Intestinal Tract, Via Natural or Artificial Opening Endoscopic (ICD-10-PCS; CPT 45378; principal; 2020-10-16 09:00)
DX: Z12.11 Encounter for screening for malignant neoplasm of colon (principal); K57.30 Diverticulosis of large intestine without perforation or abscess without bleeding; I10 Essential (primary) hypertension; R32 Unspecified urinary incontinence; E66.01 Morbid (severe) obesity due to excess calories; Z68.35 Body mass index [BMI] 35.0-35.9, adult
CPT/HCPCS: 96360; 96361; G0121; J2704; J7030

== ENCOUNTER 2020-12-15 10:47 | Outpatient (CLI) | payer MEDICARE, OTHER, SELFPAY ==
--- NOTE | 2020-12-15 10:55 | MM_ITS ---
WS: [id number] SCREENING DIGITAL MAMMOGRAM WITH CAD HISTORY: SCREENING COMPARISON: 08/26/2019 11/26/2015 Bilateral CC and MLO views submitted. Computer aided detection analyzed. Breast composition: There are scattered areas of fibroglandular density. Benign intramammary lymph no de in the medial LEFT breast. There is a new 6 mm asymmetry of slight increased density seen on the L EFT MLO projection posterior and above the nipple line. Not definitely seen on prior studies. RIGHT b reast remains negative. MM/[place] [id number] IMPRESSION: BI-RADS: 0-Incomplete: Need additional imaging evaluation FOLLOW UP: Need Additional Imaging LEFT breast: Spot compression views (MLO). Exaggerated lateral CC. True ML. Ult rasound to follow if abnormality persists.
== END 2020-12-15 10:48 | disposition home or self-care (01) ==
LOC: RADSHAW 10:48
PROVIDERS: PCP Internal Medicine; Visit Provider Nurse Practitioner Family
DX: Z12.31 Encounter for screening mammogram for malignant neoplasm of breast (principal)
CPT/HCPCS: 77067

== ENCOUNTER 2021-01-15 08:35 | Outpatient (CLI) | payer MEDICARE, OTHER, SELFPAY ==
--- NOTE | 2021-01-15 08:52 | US_ITS ---
WS: [id number] ADDITIONAL VIEWS LEFT MAMMOGRAM LEFT BREAST ULTRASOUND HISTORY: ABNORMAL MAMMOGRAM COMPARISON: 12/15/2020 and 08/26/2019 LEFT MAMMOGRAM: Spot compression views and true ML. The asymmetry persists in the posterior upper LEFT breast axillary tail measuring about 6 mm Poorly defined and seen only on the lateral projection. LEFT BREAST ULTRASOUND 2-D and color Doppler imaging submitted. Ultrasound directed to the axillary tail demonstrates a few benign-appearing lymph nodes. There is al so a hypoechoic nodule which is taller than wide 7 cm from the nipple. This nodule measures 4 x 5 x 5 mm. This is not a simple cyst. Could be a complex cyst. US/US breast LT limited* [id number] IMPRESSION: BI-RADS: 4-Suspicious Finding-Biopsy Should Be Considered FOLLOW UP: Biopsy Recommended Ultrasound-guided biopsy recommended of the 5 mm nodule in the LEFT axillary ta il. To be notified, Sandra Ellison NP at 01/15/2021 10:25 AM.
== END 2021-01-15 08:36 | disposition home or self-care (01) ==
LOC: RADSHAW 08:38
PROVIDERS: PCP Internal Medicine; Visit Provider Nurse Practitioner Family
DX: R92.8 Other abnormal and inconclusive findings on diagnostic imaging of breast (principal); N63.32 Unspecified lump in axillary tail of the left breast
CPT/HCPCS: 76642; 77065

== ENCOUNTER 2021-01-27 07:39 | Outpatient (CLI) | payer MEDICARE, OTHER, SELFPAY ==
--- NOTE | 2021-01-27 07:49 | US_ITS ---
WS: [id number] ULTRASOUND-GUIDED LEFT BREAST BIOPSY HISTORY: ABNORMAL MAMMOGRAM OF L BREAST COMPARISON: 01/15/2021 and 12/15/2020 Procedure, risks and complications are explained to the patient. Medications are reviewed. Consent is obtained. The mass in the LEFT breast is localized with ultrasound. Mass localizes to the axillary tail, 7 cm f rom the nipple. Margins are slightly irregular. No through-transmission. Skin is cleansed with Chlora Prep and anesthetized with 1% buffered lidocaine. Small dermatome is made. Under sterile conditions m ass is biopsied with a 14-gauge Achieve needle. 2 core biopsies are performed. After the initial biop sy this mass nearly completely collapsed. Material placed in formalin and sent to pathology for revie w. No complications encountered. Breast tissue marker (Bard ultrasound enhanced ribbon): Single. Patient left the radiology suite with no complications. Patient is instructed to return to [facility] or [facility] with any concerns. US/[place] [id number] IMPRESSION: 1. Uncomplicated core needle biopsy LEFT breast mass, 7 cm from the nipple. PATHOLOGY: Benign breast tissue with fibrocystic changes. No malignancy. RECOMMENDATION: Diagnostic mammogram LEFT breast in 6 months with possible ultr asound.
== END 2021-01-27 07:40 | disposition home or self-care (01) ==
LOC: RAD 07:43
PROVIDERS: PCP Internal Medicine; Visit Provider Nurse Practitioner Family
DX: R92.8 Other abnormal and inconclusive findings on diagnostic imaging of breast (principal); N63.32 Unspecified lump in axillary tail of the left breast
CPT/HCPCS: 19083; 88305

== ENCOUNTER 2021-07-20 09:01 | Outpatient (CLI) | payer MEDICARE, OTHER, SELFPAY ==
--- NOTE | 2021-07-20 09:11 | MM_ITS ---
WS: [id number] DIAGNOSTIC LEFT DIGITAL MAMMOGRAM WITH CAD LEFT breast ultrasound, limited HISTORY: 6 month follow-up benign LEFT breast biopsy. COMPARISON: None available. Technique: CC, MLO and ML views. Breast composition: There are scattered areas of fibroglandular density. Biopsy clip is noted in the LEFT axillary tail. Adjacent to the biopsy clip is an area of mild increased asymmetry which may be post biopsy scar. This area will be reevaluated by ultrasound to evaluate for a recurrent mass or new mass. Benign calcification in the anterior LEFT breast. LEFT breast ultrasound, limited. Ultrasound directed to the LEFT axillary tail in a similar location as to the prior ultrasound. No r ecurrent mass identified. No cysts. The biopsy clip is not definitely identified. MM/[place] [id number] IMPRESSION: BI-RADS: 2-Benign FOLLOW UP: 6 Month Follow-up Patient to return to annual screening mammography beginning in December 2021.
== END 2021-07-20 09:02 | disposition home or self-care (01) ==
PROVIDERS: PCP Internal Medicine; Visit Provider Nurse Practitioner Family
DX: R92.8 Other abnormal and inconclusive findings on diagnostic imaging of breast (principal)
CPT/HCPCS: 76642; 77065

== ENCOUNTER 2021-11-30 16:53 | Outpatient (CLI) | payer MEDICARE, OTHER, SELFPAY ==
--- NOTE | 2021-11-30 17:03 | XR_ITS ---
WS: [id number] Left knee, 2 views, 11/30/2021 Clinical Data: PAIN IN LEFT KNEE Comparison: Left knee, 12/02/2015. Findings: No fractures or dislocations are seen. The joint spaces are normal. There are small osteophytes of th e medial and lateral femoral condyles and of the lateral tibial plateau. The posterior patella shows mild spurring. The soft tissues are unremarkable. XR/XR knee LT 1-2V [id number] Impression: Minimal osteoarthritis of the left knee. Kellgren-Chandra Classification: grade 1 (doubtful): doubtful joint space narr owing and possible osteophytic lipping
== END 2021-11-30 16:54 | disposition home or self-care (01) ==
PROVIDERS: PCP Internal Medicine; Visit Provider Nurse Practitioner Family
DX: M25.562 Pain in left knee (principal)
CPT/HCPCS: 73560

== ENCOUNTER 2021-12-22 16:06 | Outpatient (CLI) | payer MEDICARE, OTHER, SELFPAY ==
--- NOTE | 2021-12-22 16:31 | XR_ITS ---
WS: [id number] Left knee, sunrise views of the left patella, 12/22/2021 Clinical Data: PAIN IN LEFT KNEE Comparison: Left knee, 11/30/2021. Findings: There is a small lateral spur of the left patella. No chondromalacia is seen. No fracture is noted. XR/XR knee LT 1-2V [id number] Impression: Lateral spur of left patella.
== END 2021-12-22 16:07 | disposition home or self-care (01) ==
LOC: RAD 16:13
PROVIDERS: PCP Internal Medicine; Visit Provider Nurse Practitioner Family
DX: M25.762 Osteophyte, left knee (principal)
CPT/HCPCS: 73560

== ENCOUNTER 2022-03-30 10:02 | Outpatient (CLI) | payer MEDICARE, OTHER, SELFPAY ==
--- NOTE | 2022-03-30 | US_ITS ---
WS: [id number] DIAGNOSTIC BILATERAL DIGITAL BREAST TOMOSYNTHESIS MAMMOGRAPHY WITH CAD LEFT breast ultrasound, limited HISTORY: LT BREAST LUMP AXILLARY TAIL COMPARISON: 07/20/2021, 01/15/2021, 12/15/2020 and 08/26/2019. TECHNIQUE: Bilateral craniocaudad, mediolateral oblique, and mediolateral views are submitted with tomosynthesis and SM. Spot compression LEFT MLO. Computer aided detection utilized. Breast composition: There are scattered areas of fibroglandular density. Biopsy clip and associated 5 mm irregular mass is noted in the LEFT axillary tail. This mass was previously biopsied and negative for malignancy. No increase in size of this irregular mass. The mass actually appears slightly less conspicuous and smaller as compared to prior studies. Benign calcifications in each breast. LEFT breast ultrasound, limited. Ultrasound is directed to the LEFT axillary tail at the site of fullness. Benign lymph nodes are noted. There is no suspicious soft tissue mass. The clip is not evident. MM/[place] [id number] IMPRESSION: BI-RADS: 2-Benign FOLLOW UP: 1 Year Follow-up DEANNA
--- NOTE | 2022-03-30 10:06 | MM_ITS ---
WS: [id number] DIAGNOSTIC BILATERAL DIGITAL BREAST TOMOSYNTHESIS MAMMOGRAPHY WITH CAD LEFT breast ultrasound, limited HISTORY: LT BREAST LUMP AXILLARY TAIL COMPARISON: 07/20/2021, 01/15/2021, 12/15/2020 and 08/26/2019. TECHNIQUE: Bilateral craniocaudad, mediolateral oblique, and mediolateral views are submitted with to mosynthesis and SM. Spot compression LEFT MLO. Computer aided detection utilized. Breast composition: There are scattered areas of fibroglandular density. Biopsy clip and associated 5 mm irregular mass is noted in the LEFT axillary tail. This mass was previously biopsied and negative for malignancy. No increase in size of this irregular mass. The mass actually appears slightly less conspicuous and smaller as compared to prior studies. Benign calcifications in each breast. LEFT breast ultrasound, limited. Ultrasound is directed to the LEFT axillary tail at the site of fullness. Benign lymph nodes are note d. There is no suspicious soft tissue mass. The clip is not evident. MM/[place] [id number] IMPRESSION: BI-RADS: 2-Benign FOLLOW UP: 1 Year Follow-up
== END 2022-03-30 10:03 | disposition home or self-care (01) ==
LOC: RAD 10:03
PROVIDERS: PCP Internal Medicine; Visit Provider Nurse Practitioner Family
DX: N63.32 Unspecified lump in axillary tail of the left breast (principal)
CPT/HCPCS: 76642; 77062

== ENCOUNTER → 2022-08-15 09:37 | Outpatient (BNVA) | payer MEDICARE, OTHER, SELFPAY | PROVIDERS: PCP Internal Medicine; Visit Provider Nurse Practitioner Family | DX: I10 Essential (primary) hypertension (principal) | CPT/HCPCS: 80053 ==

== ENCOUNTER 2022-11-04 13:53 | Outpatient (CLI) | payer MEDICARE, OTHER, SELFPAY ==
--- NOTE | 2022-11-04 14:30 | MR_ITS ---
WS: [id number] MRI LEFT KNEE HISTORY: M25.562 - Pain in left knee COMPARISON: 12/21/2015 Anterior cruciate ligament: Small caliber anterior cruciate ligament but it is intact. Posterior cruciate ligament: Intact. Medial collateral ligament: Intact. Posterior lateral corner structures: Intact. Medial menisci: Complex tear posterior horn medial meniscus. There is a full-thickness tear in the po sterior meniscus but this tear also extends into the meniscal root. Mild surface fraying of the remai reanna meniscus. Partially extruded anterior horn. Lateral meniscus: Increased signal throughout the posterior horn extending towards the meniscal root. Anterior horn not visualized. Extensor mechanism: Distal quadriceps tendon and patellar tendons are intact. Fluid and soft tissue: Small suprapatellar joint effusion. Lobulated Phelps's cyst extends over a marquise th of 6 cm. Osseous and articular structures: Patellofemoral compartment: Moderate chondromalacia and narrowing of the patellofemoral joint space. Medial compartment: Mild narrowing of the medial compartment with moderate diffuse chondromalacia. Sm all marginal osteophytes. No fracture. Lateral compartment: Moderate narrowing of the lateral compartment with moderate to severe chondromal acia. Marginal osteophytes from the joint line. MR/MR knee LT wo con* [id number] IMPRESSION: 1. Abnormal signal in the posterior horns of the medial and lateral meniscus. Tears are suspected involving the meniscal roots. 2. Small caliber absent anterior horn posterior meniscus. Probably extruded an d torn. 3. Small caliber but intact ACL. 4. Small joint effusion and lobulated Phelps's cyst. 5. Moderate patellofemoral chondromalacia. 6. Moderate narrowing of the lateral compartment with moderate to severe chond romalacia. 7. Mild narrowing medial compartment with moderate chondromalacia.
== END 2022-11-04 13:54 | disposition home or self-care (01) ==
LOC: RAD 13:55
PROVIDERS: PCP Nurse Practitioner Family; Visit Provider Nurse Practitioner Family
DX: G89.29 Other chronic pain (principal); M25.462 Effusion, left knee; M71.22 Synovial cyst of popliteal space [Baker], left knee; M22.42 Chondromalacia patellae, left knee
CPT/HCPCS: 73721

== ENCOUNTER → 2022-11-16 10:54 | Outpatient (BNVA) | payer MEDICARE, OTHER, SELFPAY | PROVIDERS: PCP Nurse Practitioner Family; Referring Provider Nurse Practitioner Family; Visit Provider Orthopaedic Surgery | DX: M17.12 Unilateral primary osteoarthritis, left knee (principal) | CPT/HCPCS: 73560; 73565; 99203 ==

== ENCOUNTER → 2022-12-12 09:46 | Outpatient (BNVA) | payer MEDICARE, OTHER, SELFPAY | PROVIDERS: PCP Nurse Practitioner Family; Visit Provider Nurse Practitioner Family | DX: I10 Essential (primary) hypertension (principal); Z96.1 Presence of intraocular lens; Z98.49 Cataract extraction status, unspecified eye; Z71.3 Dietary counseling and surveillance; R06.09 Other forms of dyspnea | CPT/HCPCS: 80053; 80061 ==

== ENCOUNTER 2022-12-29 11:04 | Outpatient (CLI) | payer MEDICARE, OTHER, SELFPAY ==
--- NOTE | 2022-12-29 12:49 | OP.DCCON ---
Reason for Visit: Z71.3 - Dietary counseling and surveillance Person Interviewed: Patient Medical History, Labs and Background: Michelle is on BP meds, but if lost 10 lbs she thought she could be off them. She has problems with both knees and has an irritable bladder. In her family - siblings- everyone is diabetic but her. Height: 5 ft 6 in Weight: 219 lb BMI: 35.4 kg/m2 UBW: Pt is usually this weight IBW: Ideally, Pt would like to be 170 lbs. Weight History: Michelle said she has always had problems with her weight and often lost weight only to gain it back. Her favorite diet is Weight Watchers and she really misses the accountability. Her weakness is sweets. Once she starts she said it is hard to stop. Concerns and Goals: Pt said the weight just won't come off. Sleep Hygiene: No problems. Physical Activity: Michelle likes to walk her dogs when her knees are not hurting too much. Other Feeding Issues: Pt cannot stop once she starts eating sweets. Food Allergies and Sensitivities: Michelle said CHO's make her knees hurt and just pack on the poungs. Meds, Supplements & Other: Blood pressure meds, womens MV, Vitamin C, elderberry. 24 Hour Recall: Breakfast Time: oatmeal w/blueberries and pecans Snack Time: Lunch Time:salad with letuuce/cheese/veggies/olives and ital dressing Snack Time: Dinner Time: squash + pork loin + watermelon Snack Time: Soda vs Milk vs Water: Pt drinks green tea in the morning, then water the rest of the day. Additional Comments: Pt said she doesn't snack much. She also mentioned the importance of accountability and laments that [employer] has closed down in [place]. Recommendations: Michelle has struggled with wt loss and gain all of her life and has found weight watchers a lifeline. However she can't find an active group near her. Sweets are her downfall and she eats very few CHO's in general besides salad and fruit. At first she talked about losing close to 50lbs, but we set an initial goal of 10-20 lbs. Nutrition Dx: Excessive energy intake r/t habits and patterns AEB Pt's history and current BMI. We discussed goal setting and began with 10-20 lbs for an initial goal. Also discussed forming a group if one couldn't be found and Michelle thought of posting in her neighborhood watch to see if anyone wanted to walk and lose wt. together. Lastly we talked about Intermittent Fasting and I promised to send her articles for more information and also advised to not be inflexible, but rather let it work for her in her schedule and life. As far as FU, I am checking in with her in 1 week to hear her goals and see if she has made progress with them. * Michelle was very pleasant and motivated. Coding Level of Care Code Nutrition/Individ/Init 60 min Time Spent (min) 60
== END 2022-12-29 11:05 | disposition home or self-care (01) ==
LOC: DIET 11:07
PROVIDERS: PCP Nurse Practitioner Family; Visit Provider Nurse Practitioner Family
DX: Z71.3 Dietary counseling and surveillance (principal); Z68.34 Body mass index [BMI] 34.0-34.9, adult
CPT/HCPCS: 80053; 80061; 97802

== ENCOUNTER → 2023-06-08 09:36 | Outpatient (BNVA) | payer MEDICARE, OTHER, SELFPAY | PROVIDERS: PCP Nurse Practitioner Family; Visit Provider Nurse Practitioner Family | DX: I10 Essential (primary) hypertension (principal) | CPT/HCPCS: 80053; 80061 ==

== ENCOUNTER 2023-06-19 14:47 | Outpatient (CLI) | payer MEDICARE, OTHER, SELFPAY ==
--- NOTE | 2023-06-19 15:00 | XR_ITS ---
WS: [id number] SCREENING DEXA SCAN [employer] CLINICAL INFORMATION: M81.0 - Age-related osteoporosis without current patholog... COMPARISON: 2019 FINDINGS: The L1-L4 bone mineral density measures 1.207 g/cm2. This corresponds to a T score score of 0.2 and Z score of 0.8. Left femoral neck bone mineral density measures 0.972 g/cm2. This corresponds to a T score of -0.3 an d Z score of 0.5. Right femoral neck bone mineral density measures 0.975 g/cm2. This corresponds to a T score -0.3of an d Z score of 0.6. Mean femoral neck bone mineral density measures 0.973 g/cm2. This corresponds to a T score of -0.3 an d Z score of 0.6. IMPRESSION: Normal bone mineralization. Patient's FRAX calculated 10 year probability for major osteoporotic fracture is 9.6% and osteoporoti c hip fracture is 1.5%. Bone mineral density lumbar spine decreased -0.1% Bone mineral density femoral necks increased 1.1%
== END 2023-06-19 14:48 | disposition home or self-care (01) ==
LOC: RAD 14:47
PROVIDERS: PCP Nurse Practitioner Family; Visit Provider Nurse Practitioner Family
DX: M81.0 Age-related osteoporosis without current pathological fracture (principal)
CPT/HCPCS: 77080

== ENCOUNTER → 2023-09-20 11:37 | Outpatient (BNVA) | payer MEDICARE, OTHER, SELFPAY | PROVIDERS: PCP Nurse Practitioner Family; Visit Provider Nurse Practitioner Family | DX: I10 Essential (primary) hypertension (principal) | CPT/HCPCS: 80053; 80061; 84443 ==

== ENCOUNTER → 2023-10-25 13:49 | Outpatient (BNVA) | payer MEDICARE, OTHER, SELFPAY | PROVIDERS: PCP Nurse Practitioner Family; Visit Provider Nurse Practitioner Family | DX: I10 Essential (primary) hypertension (principal); R73.09 Other abnormal glucose | CPT/HCPCS: 80053; 83036 ==

== ENCOUNTER → 2023-11-16 10:45 | Outpatient (BNVA) | payer MEDICARE, OTHER, SELFPAY | PROVIDERS: PCP Nurse Practitioner Family; Visit Provider Nurse Practitioner Family | DX: L57.0 Actinic keratosis (principal); L82.1 Other seborrheic keratosis; L57.8 Other skin changes due to chronic exposure to nonionizing radiation; L85.3 Xerosis cutis; D22.5 Melanocytic nevi of trunk; L81.4 Other melanin hyperpigmentation ==

== ENCOUNTER 2023-12-19 14:35 | Outpatient (CLI) | payer MEDICARE, OTHER, SELFPAY ==
--- NOTE | 2023-12-19 14:38 | XRR_ITS ---
PROCEDURE INFORMATION: Exam: XR Left Hip Exam date and time: 12/19/2023 2:42 PM Age: 73 years old Clinical indication: Hip pain; Left hip; Additional info: M25.562 - pain in left knee TECHNIQUE: Imaging protocol: Radiologic exam of the left hip. Views: 2 or 3 views hip with pelvis when performed. COMPARISON: No relevant prior studies available. FINDINGS: Bones/joints: Femoroacetabular alignment is normal. Joint space is preserved. No acute fracture. No osteophytes. Soft tissues: Visible soft tissues are unremarkable. XR/XR hip LT 2-3V wo/w pel* [id number] IMPRESSION: No pathologic findings.
== END 2023-12-19 14:36 | disposition home or self-care (01) ==
LOC: RAD 14:37
PROVIDERS: PCP Nurse Practitioner Family; Visit Provider Nurse Practitioner Family
DX: M25.562 Pain in left knee (principal)
CPT/HCPCS: 73502

== ENCOUNTER 2024-01-12 12:20 | Outpatient (CLI) | payer MEDICARE, OTHER, SELFPAY ==
--- NOTE | 2024-01-12 12:24 | XR_ITS ---
WS: [id number] XR shoulder LT min 2V* [id number] REASON FOR EXAM: M25.512 - Pain in left shoulder FINDINGS: No fracture or focal bone lesion. Mild narrowing of the acromioclavicular joint space with mild subchondral sclerosis and osteophytosis . Downward slant orientation of the acromial process. Glenohumeral joint is intact without significant narrowing. No abnormality of the glenoid or humeral head. Amorphous calcification adjacent to the greater biceps tuberosity. This appears to lie within the rot ator cuff tendon insertion on the humeral head. 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 Of the glenohumeral joint. 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
== END 2024-01-12 12:21 | disposition home or self-care (01) ==
LOC: RAD 12:22
PROVIDERS: PCP Nurse Practitioner Family; Visit Provider Nurse Practitioner Family
DX: M75.32 Calcific tendinitis of left shoulder (principal)
CPT/HCPCS: 73030

== ENCOUNTER → 2024-01-16 08:10 | Outpatient (BNVA) | payer MEDICARE, OTHER, SELFPAY | PROVIDERS: PCP Nurse Practitioner Family; Visit Provider Nurse Practitioner Family | DX: L82.0 Inflamed seborrheic keratosis (principal); L57.0 Actinic keratosis; L81.4 Other melanin hyperpigmentation; L57.8 Other skin changes due to chronic exposure to nonionizing radiation; L82.1 Other seborrheic keratosis; D22.5 Melanocytic nevi of trunk | CPT/HCPCS: 17000; 17110; 99213 ==

== ENCOUNTER 2024-05-13 10:31 | Outpatient (CLI) | payer MEDICARE, OTHER, SELFPAY ==
--- NOTE | 2024-05-13 11:00 | MR_ITS ---
WS: [id number] MRI LEFT HIP WITHOUT CONTRAST. COMPARISON: Radiographs 12/19/2023 Multiplanar, multisequence imaging is performed without contrast. No fractures or marrow edema. Mild narrowing of the hip joint. No subchondral cystic changes or marro w edema. No joint effusion. There is increased T2 signal in the gluteus minimus tendon at its attachment to the superior greater trochanter. There is fluid signal centrally in the tendon. There is also mild atrophy of the gluteus minimus with fatty replacement. Gluteus sean and medius are normal. Visualized sacrum is normal. Uterus is midline. There is no free fluid or adenopathy in the pelvis. MR/MR hip LT wo con* [id number] IMPRESSION: 1. Partial tear LEFT gluteus minimus tendon. 2. 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 3. Very mild narrowing of the hip joint from arthritis. 4. No fractures or marrow edema.
== END 2024-05-13 10:32 | disposition home or self-care (01) ==
PROVIDERS: PCP Nurse Practitioner Family; Visit Provider Nurse Practitioner Family
DX: S76.092A Other specified injury of muscle, fascia and tendon of left hip, initial encounter (principal); X58.XXXA Exposure to other specified factors, initial encounter
CPT/HCPCS: 73721

== ENCOUNTER → 2024-05-17 11:55 | Outpatient (BNVA) | payer MEDICARE, OTHER, SELFPAY | PROVIDERS: PCP Nurse Practitioner Family; Visit Provider Nurse Practitioner Family | DX: Z13.1 Encounter for screening for diabetes mellitus (principal); I10 Essential (primary) hypertension; E87.6 Hypokalemia | CPT/HCPCS: 80053; 83036; 85025 ==

== ENCOUNTER → 2024-07-17 11:10 | Outpatient (BNVA) | payer MEDICARE, OTHER, SELFPAY | PROVIDERS: PCP Nurse Practitioner Family; Visit Provider Nurse Practitioner Family | DX: L81.4 Other melanin hyperpigmentation (principal); L57.8 Other skin changes due to chronic exposure to nonionizing radiation; D22.5 Melanocytic nevi of trunk; L57.0 Actinic keratosis | CPT/HCPCS: 17000; 99213 ==

== ENCOUNTER → 2024-11-20 10:59 | Outpatient (BNVA) | payer MEDICARE, OTHER, SELFPAY | PROVIDERS: PCP Nurse Practitioner Family; Visit Provider Nurse Practitioner Family | DX: L81.4 Other melanin hyperpigmentation (principal); L57.8 Other skin changes due to chronic exposure to nonionizing radiation; X32.XXXA Exposure to sunlight, initial encounter; L57.0 Actinic keratosis | CPT/HCPCS: 17000; 99213 ==

== ENCOUNTER → 2024-11-27 15:05 | Outpatient (BNVA) | payer MEDICARE, OTHER, SELFPAY | PROVIDERS: PCP Nurse Practitioner Family; Visit Provider Nurse Practitioner Family | DX: I10 Essential (primary) hypertension (principal); R73.9 Hyperglycemia, unspecified | CPT/HCPCS: 80053; 80061; 83036 ==

== ENCOUNTER → 2025-02-06 10:39 | Outpatient (BNVA) | payer MEDICARE, OTHER, SELFPAY | PROVIDERS: PCP Nurse Practitioner Family; Visit Provider Podiatrist Foot & Ankle Surgery | DX: M20.41 Other hammer toe(s) (acquired), right foot (principal); M20.42 Other hammer toe(s) (acquired), left foot; M79.671 Pain in right foot; M79.672 Pain in left foot | CPT/HCPCS: 73630; 99204 ==

== ENCOUNTER → 2025-02-25 11:10 | Outpatient (BNVA) | payer MEDICARE, OTHER, SELFPAY | PROVIDERS: PCP Nurse Practitioner Family; Visit Provider Nurse Practitioner Family | DX: N39.0 Urinary tract infection, site not specified (principal) | CPT/HCPCS: 81000; 87086 ==

== ENCOUNTER → 2025-03-05 09:58 | Outpatient (BNVA) | payer MEDICARE, OTHER, SELFPAY | PROVIDERS: PCP Nurse Practitioner Family; Visit Provider Nurse Practitioner Family | DX: R32 Unspecified urinary incontinence (principal); N39.0 Urinary tract infection, site not specified | CPT/HCPCS: 81000; 87086 ==

== ENCOUNTER 2025-04-16 10:17 | Outpatient (RCR) | payer MEDICARE, OTHER, SELFPAY | END 2025-05-06 23:59 | disposition home or self-care (01) | LOC: SPT 10:17 | PROVIDERS: PCP Nurse Practitioner Family; Visit Provider Nurse Practitioner Family | DX: M25.552 Pain in left hip (principal); G89.29 Other chronic pain | CPT/HCPCS: 97110; 97161 ==

== ENCOUNTER 2025-05-07 05:00 | Outpatient (RCR) | payer MEDICARE, OTHER, SELFPAY | END 2025-06-06 23:59 | disposition home or self-care (01) | LOC: SPT 05:00 | PROVIDERS: PCP Nurse Practitioner Family; Visit Provider Nurse Practitioner Family | DX: M25.552 Pain in left hip (principal); G89.29 Other chronic pain | CPT/HCPCS: 97110 ==